=== PATIENT | female | born 1995 | race African-American/Black ===

== ENCOUNTER 2018-09-23 15:48 | Emergency (ER) | payer MEDICAID ==
[~2018-09-23] VITALS: Ht 157.5 cm; Wt 59.0 kg
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
[2018-09-23 17:43] VITALS: BP 122/70
[2018-09-23 17:44] VITALS: BP 122/70
[2018-09-24] MEDS ORDERED: AUGMENTIN 875-1 EAC1 ORAL (00:15)
[2018-09-24] MEDS ORDERED: BACITRACIN-P28.35 GM TP (00:15)
== END 2018-09-23 17:40 | disposition left against medical advice (07) ==
LOC: EMR 17:30
DX: S01.85XA Open bite of other part of head, initial encounter (principal); Y04.1XXA Assault by human bite, initial encounter; Y92.9 Unspecified place or not applicable; J02.9 Acute pharyngitis, unspecified; R05 Cough; F17.200 Nicotine dependence, unspecified, uncomplicated; Z53.21 Procedure and treatment not carried out due to patient leaving prior to being seen by health care provider
CPT/HCPCS: 99282